=== PATIENT | male | born 1945 | race African-American/Black ===

== ENCOUNTER 2017-01-08 10:02 | Emergency (ER) | payer OTHER ==
[~2017-01-08 10:02] MED LIST: ASPIRIN81 M2 PO; ATORVASTATIN CA10 MG PO; CLARITIN10 M2 PO; FLONASE ALLERG9.9 ML; ZESTRIL10 M1 PO
== END 2017-01-08 10:32 | disposition home or self-care (01) ==
LOC: CED 10:02
DX: M51.16 Intervertebral disc disorders with radiculopathy, lumbar region (principal); S91.312A Laceration without foreign body, left foot, initial encounter; I10 Essential (primary) hypertension; X58.XXXA Exposure to other specified factors, initial encounter
CPT/HCPCS: 99282; 99283